=== PATIENT | female | born 1960 | race Caucasian/White ===

== ENCOUNTER → 2017-07-09 | Outpatient (REF) | payer OTHER | LOC: M SFHCLERA 19:23 | DX: J02.9 Acute pharyngitis, unspecified (principal) ==

== ENCOUNTER → 2017-10-20 | Outpatient (CLI) | payer OTHER | LOC: M ONCR 13:08 | DX: C32.9 Malignant neoplasm of larynx, unspecified (principal) | CPT/HCPCS: 99201 ==

== ENCOUNTER → 2017-10-26 | Outpatient (REF) | payer OTHER ==
[2017-10-26 13:35] LABS: INR 0.96; PROTHROMBIN TIME 12.9 SECONDS (12.4-14.5)
[2017-10-26 13:36] LABS: PARTIAL THROMBOPLASTIN TIME 33.7 SECONDS (26.8-37.9)
== END ==
LOC: M LAB REF 12:39
DX: Z01.818 Encounter for other preprocedural examination (principal); C32.9 Malignant neoplasm of larynx, unspecified

== ENCOUNTER → 2017-10-27 | Outpatient (CLI) | payer OTHER ==
[~2017-10-27] MED LIST: GASTROGRAFIN SOLUTION 30ML (Q9963) As Ordered; ISOVUE-370 76% 100ML VIAL (Q9967) As Ordered
== END ==
LOC: M RAD 10:35
DX: C76.0 Malignant neoplasm of head, face and neck (principal); M79.89 Other specified soft tissue disorders; R59.0 Localized enlarged lymph nodes; I87.1 Compression of vein
CPT/HCPCS: Q9963

== ENCOUNTER → 2017-11-08 | Outpatient (CLI) | payer OTHER ==
[~2017-11-08] MED LIST changes: -GASTROGRAFIN SOLUTION 30ML (Q9963) As Ordered
== END ==
LOC: M RAD 13:34
DX: D48.7 Neoplasm of uncertain behavior of other specified sites (principal)
CPT/HCPCS: Q9967

== ENCOUNTER → 2017-11-10 | Outpatient (CLI) | payer OTHER ==
[~2017-11-10] MED LIST changes: -ISOVUE-370 76% 100ML VIAL (Q9967) As Ordered; +LIDOCAINE 1% MDV 20ML VIAL As Ordered
== END ==
LOC: M RAD 14:33
DX: C79.2 Secondary malignant neoplasm of skin (principal); R22.31 Localized swelling, mass and lump, right upper limb; C32.1 Malignant neoplasm of supraglottis; Z90.5 Acquired absence of kidney; Z93.1 Gastrostomy status; Z95.828 Presence of other vascular implants and grafts; Z88.5 Allergy status to narcotic agent
CPT/HCPCS: 20206

== ENCOUNTER 2017-11-11 10:07 | Outpatient (RCR) | payer OTHER | END 2017-11-13 | LOC: M ONCR 10:07 | DX: C79.2 Secondary malignant neoplasm of skin (principal) | CPT/HCPCS: 77300 ==

== ENCOUNTER 2017-11-15 10:35 | Outpatient (RCR) | payer OTHER | END 2017-12-14 | LOC: M ONCR 10:35 | DX: C79.2 Secondary malignant neoplasm of skin (principal); C32.9 Malignant neoplasm of larynx, unspecified | CPT/HCPCS: 77336 ==

== ENCOUNTER 2017-11-21 21:00 | Emergency (ER) | payer OTHER ==
[2017-11-21 23:04] LABS: BASO % 0.3 % (0.0-1.0); EOS # 0.1 10^3/uL (0.0-0.50); EOS % 0.9 % (0.0-3.0); HEMOGLOBIN 12.1 g/dl (12.0-15.5); IMMATURE GRANULOCYTE % 0.4 % (0-3.0); LYMPH # 1.4 10^3/uL (1.5-4.5); LYMPH % 9.8 % (24.0-44.0); MEAN CORPUSCULAR HEMOGLOBIN 29.4 pg (27.0-33.0); MEAN CORPUSCULAR HGB CONC 32.7 g/dl (32.0-36.5); MEAN CORPUSCULAR VOLUME 89.8 fl (80.0-96.0); MONO # 1.6 10^3/uL (0.0-0.8); MONO % 11.8 % (0.0-5.0); NEUTROPHILS # 10.6 10^3/uL (1.8-7.7); NEUTROPHILS % 76.8 % (36.0-66.0); PLATELET COUNT, AUTOMATED 346 10^3/uL (150-450); RED BLOOD COUNT 4.12 10^6/uL (4.00-5.40); RED CELL DISTRIBUTION WIDTH 12.4 % (11.5-14.5); WHITE BLOOD COUNT 13.8 10^3/uL (4.0-10.0)
[2017-11-21 23:26] LABS: ALBUMIN 3.3 GM/DL (3.2-5.2); ALBUMIN/GLOBULIN RATIO 0.85 (1.00-1.93); ALKALINE PHOSPHATASE 111 U/L (45-117); ALT/SGPT 14 U/L (12-78); ANION GAP 6 MEQ/L (8-16); AST/SGOT 8 U/L (7-37); BILIRUBIN,DIRECT 0.1 MG/DL (0.0-0.2); BILIRUBIN,TOTAL 0.4 MG/DL (0.2-1.0); BLOOD UREA NITROGEN 17 MG/DL (7-18); CALCIUM LEVEL 8.8 MG/DL (8.5-10.1); CARBON DIOXIDE LEVEL 32 MEQ/L (21-32); CHLORIDE LEVEL 101 MEQ/L (98-107); CREATININE FOR GFR 0.62 MG/DL (0.55-1.30); GLOMERULAR FILTRATION RATE > 60.0 (>51); GLUCOSE, FASTING 100 MG/DL (70-100); LIPASE 147 U/L (73-393); POTASSIUM SERUM 4.1 MEQ/L (3.5-5.1); SODIUM LEVEL 139 MEQ/L (136-145); TOTAL PROTEIN 7.2 GM/DL (6.4-8.2)
[2017-11-21 23:29] LABS: INR 0.93; PARTIAL THROMBOPLASTIN TIME 25.6 SECONDS (25.4-37.6); PROTHROMBIN TIME 12.6 SECONDS (12.1-14.4)
[2017-11-22] MEDS ORDERED: ISOVUE-370 76% 100ML VIAL (Q9967) As Ordered (00:42)
== END 2017-11-22 02:40 | disposition home or self-care (01) ==
LOC: M ED 11-22 02:40
DX: R10.9 Unspecified abdominal pain (principal); C32.9 Malignant neoplasm of larynx, unspecified; R16.0 Hepatomegaly, not elsewhere classified; Z87.891 Personal history of nicotine dependence; Z93.1 Gastrostomy status; Z79.899 Other long term (current) drug therapy; Z88.5 Allergy status to narcotic agent
CPT/HCPCS: Q9967

== ENCOUNTER → 2017-11-25 | Outpatient (CLI) | payer OTHER | LOC: M ONCR 10:45 | DX: C32.1 Malignant neoplasm of supraglottis (principal) ==

== ENCOUNTER → 2017-12-14 | Outpatient (CLI) | payer OTHER ==
[~2017-12-14] MED LIST changes: -LIDOCAINE 1% MDV 20ML VIAL As Ordered; +PROHANCE 279.3MG/ML 5ML VIAL (A9576) As Ordered
== END ==
LOC: M RAD 11:02
DX: C32.1 Malignant neoplasm of supraglottis (principal)
CPT/HCPCS: A9576

== ENCOUNTER → 2017-12-15 | Outpatient (CLI) | payer OTHER | LOC: M ONCR 13:32 | DX: C32.9 Malignant neoplasm of larynx, unspecified (principal) | CPT/HCPCS: 99211 ==

== ENCOUNTER → 2018-01-03 | Outpatient (REF) | payer OTHER ==
[2018-01-03 13:42] LABS: MAGNESIUM LEVEL 1.3 MG/DL (1.8-2.4)
== END ==
LOC: M LAB REF 13:09
DX: C32.1 Malignant neoplasm of supraglottis (principal); C77.0 Secondary and unspecified malignant neoplasm of lymph nodes of head, face and neck; F17.210 Nicotine dependence, cigarettes, uncomplicated; R22.31 Localized swelling, mass and lump, right upper limb

== ENCOUNTER 2018-01-05 09:03 | Outpatient (RCR) | payer OTHER | END 2018-01-14 | LOC: M ST 09:03 | DX: C32.9 Malignant neoplasm of larynx, unspecified (principal); C79.9 Secondary malignant neoplasm of unspecified site | CPT/HCPCS: 92524 ==

== ENCOUNTER → 2018-01-10 | Outpatient (REF) | payer OTHER ==
[2018-01-10 14:07] LABS: MAGNESIUM LEVEL 1.5 MG/DL (1.8-2.4)
== END ==
LOC: M LAB REF 13:39
DX: C32.1 Malignant neoplasm of supraglottis (principal); C77.0 Secondary and unspecified malignant neoplasm of lymph nodes of head, face and neck; F17.210 Nicotine dependence, cigarettes, uncomplicated; R22.31 Localized swelling, mass and lump, right upper limb

== ENCOUNTER 2018-01-21 12:44 | Outpatient (RCR) | payer OTHER | END 2018-02-13 | LOC: M ST 12:44 | DX: C79.9 Secondary malignant neoplasm of unspecified site (principal); C32.9 Malignant neoplasm of larynx, unspecified | CPT/HCPCS: 92507 ==

== ENCOUNTER → 2018-01-24 | Outpatient (REF) | payer OTHER ==
[2018-01-24 23:31] LABS: MAGNESIUM LEVEL 1.3 MG/DL (1.8-2.4)
== END ==
LOC: M LAB REF 13:00
DX: C32.1 Malignant neoplasm of supraglottis (principal); C77.0 Secondary and unspecified malignant neoplasm of lymph nodes of head, face and neck; F17.210 Nicotine dependence, cigarettes, uncomplicated; R22.31 Localized swelling, mass and lump, right upper limb

== ENCOUNTER → 2018-01-31 | Outpatient (REF) | payer OTHER ==
[2018-01-31 14:40] LABS: MAGNESIUM LEVEL 1.5 MG/DL (1.8-2.4)
== END ==
LOC: M LAB REF 13:34
DX: C32.1 Malignant neoplasm of supraglottis (principal); C77.0 Secondary and unspecified malignant neoplasm of lymph nodes of head, face and neck; F17.210 Nicotine dependence, cigarettes, uncomplicated; R22.31 Localized swelling, mass and lump, right upper limb

== ENCOUNTER 2018-02-01 10:11 | Outpatient (CLI) | payer OTHER ==
[2018-02-01] MEDS: diphenhydrAMINE 50 MG CAP PO (11:43)
[2018-02-01 11:49] LABS: IMMEDIATE SPIN CROSSMATCH 1 2
[2018-02-01] MEDS: SODIUM CHLORIDE 0.9% INJ 10 ML SYR IV (15:47)
== END 2018-02-01 16:00 | disposition home or self-care (01) ==
LOC: M INFU 10:11
DX: D64.81 Anemia due to antineoplastic chemotherapy (principal); C32.9 Malignant neoplasm of larynx, unspecified; C79.9 Secondary malignant neoplasm of unspecified site; Z79.899 Other long term (current) drug therapy; Z88.5 Allergy status to narcotic agent; Z93.1 Gastrostomy status; Z90.5 Acquired absence of kidney; Z93.0 Tracheostomy status; Z90.02 Acquired absence of larynx
CPT/HCPCS: 36430

== ENCOUNTER → 2018-02-03 | Outpatient (CLI) | payer OTHER ==
[~2018-02-03] MED LIST changes: +GASTROGRAFIN SOLUTION 30ML (Q9963) As Ordered; +ISOVUE-370 76% 100ML VIAL (Q9967) As Ordered; -PROHANCE 279.3MG/ML 5ML VIAL (A9576) As Ordered
== END ==
LOC: M RAD 09:10
DX: C76.0 Malignant neoplasm of head, face and neck (principal); Z93.0 Tracheostomy status; R59.0 Localized enlarged lymph nodes
CPT/HCPCS: Q9963

== ENCOUNTER → 2018-02-03 | Outpatient (CLI) | payer OTHER | LOC: M ONCR 11:59 | DX: C32.9 Malignant neoplasm of larynx, unspecified (principal); C79.2 Secondary malignant neoplasm of skin ==

== ENCOUNTER → 2018-02-07 | Outpatient (REF) | payer OTHER ==
[2018-02-07 14:30] LABS: MAGNESIUM LEVEL 1.5 MG/DL (1.8-2.4)
== END ==
LOC: M LAB REF 13:46
DX: C32.1 Malignant neoplasm of supraglottis (principal); R22.31 Localized swelling, mass and lump, right upper limb; F17.210 Nicotine dependence, cigarettes, uncomplicated; C77.0 Secondary and unspecified malignant neoplasm of lymph nodes of head, face and neck

== ENCOUNTER 2018-03-07 11:08 | Outpatient (RCR) | payer OTHER | END 2018-03-16 | LOC: M ST 11:08 | DX: C32.9 Malignant neoplasm of larynx, unspecified (principal); C79.9 Secondary malignant neoplasm of unspecified site | CPT/HCPCS: 92507 ==

== ENCOUNTER 2018-03-16 11:48 | Emergency (ER) | payer OTHER ==
[2018-03-16] MEDS: NS 1,000 ML IV (14:04)
[2018-03-16] MEDS: ONDANSETRON 4MG/2ML VIAL (J2405) IV (14:04)
[2018-03-16] MEDS: MORPHINE 4 MG/ML 1ML VIAL/SYRINGE (J2270) IV (14:05)
[2018-03-16 14:09] LABS: BASO % 0.1 % (0.0-1.0); EOS % 0.1 % (0.0-3.0); HEMATOCRIT 35.6 % (36.0-47.0); HEMOGLOBIN 12.2 g/dl (12.0-15.5); IMMATURE GRANULOCYTE % 0.9 % (0-3.0); LYMPH # 2.3 10^3/uL (1.5-4.5); MEAN CORPUSCULAR HEMOGLOBIN 31.4 pg (27.0-33.0); MEAN CORPUSCULAR HGB CONC 34.3 g/dl (32.0-36.5); MEAN CORPUSCULAR VOLUME 91.8 fl (80.0-96.0); MONO # 1.3 10^3/uL (0.0-0.8); MONO % 9.2 % (0.0-5.0); NEUTROPHILS # 10.7 10^3/uL (1.8-7.7); NEUTROPHILS % 73.7 % (36.0-66.0); PLATELET COUNT, AUTOMATED 173 10^3/uL (150-450); RED BLOOD COUNT 3.88 10^6/uL (4.00-5.40); RED CELL DISTRIBUTION WIDTH 13.8 % (11.5-14.5); WHITE BLOOD COUNT 14.5 10^3/uL (4.0-10.0)
[2018-03-16 14:28] LABS: INR 0.99; PROTHROMBIN TIME 13.1 SECONDS (12.1-14.4)
[2018-03-16 14:29] LABS: PARTIAL THROMBOPLASTIN TIME 24.9 SECONDS (25.4-37.6)
[2018-03-16 14:33] LABS: ALBUMIN 3.7 GM/DL (3.2-5.2); ALBUMIN/GLOBULIN RATIO 0.95 (1.00-1.93); ALKALINE PHOSPHATASE 126 U/L (45-117); ALT/SGPT 35 U/L (12-78); AMYLASE 84 U/L (25-115); ANION GAP 12 MEQ/L (8-16); AST/SGOT 32 U/L (7-37); BILIRUBIN,DIRECT 0.1 MG/DL (0.0-0.2); BILIRUBIN,TOTAL 0.5 MG/DL (0.2-1.0); BLOOD UREA NITROGEN 49 MG/DL (7-18); CALCIUM LEVEL 8.4 MG/DL (8.5-10.1); CARBON DIOXIDE LEVEL 28 MEQ/L (21-32); CHLORIDE LEVEL 95 MEQ/L (98-107); CREATININE FOR GFR 1.34 MG/DL (0.55-1.30); GLOMERULAR FILTRATION RATE 43.4 (>51); GLUCOSE, FASTING 86 MG/DL (70-100); LIPASE 400 U/L (73-393); POTASSIUM SERUM 3.3 MEQ/L (3.5-5.1); SODIUM LEVEL 135 MEQ/L (136-145); TOTAL PROTEIN 7.6 GM/DL (6.4-8.2)
[2018-03-16] MEDS ORDERED: ISOVUE-370 76% 100ML VIAL (Q9967) As Ordered (14:36)
== END 2018-03-16 16:38 | disposition home or self-care (01) ==
LOC: M ED 11:48
DX: K29.70 Gastritis, unspecified, without bleeding (principal); K85.90 Acute pancreatitis without necrosis or infection, unspecified; Z87.891 Personal history of nicotine dependence; Z88.5 Allergy status to narcotic agent; Z85.21 Personal history of malignant neoplasm of larynx
CPT/HCPCS: J2270

== ENCOUNTER 2018-03-28 10:42 | Outpatient (CLI) | payer OTHER ==
[~2018-03-28 10:42] MED LIST changes: -GASTROGRAFIN SOLUTION 30ML (Q9963) As Ordered; -ISOVUE-370 76% 100ML VIAL (Q9967) As Ordered; +SODIUM CHLORIDE 0.9% INJ 10 ML SYR IV
[2018-03-28] MEDS: diphenhydrAMINE 25 MG CAP PO (11:30)
[2018-03-28] MEDS: ACETAMINOPHEN TAB 650MG DOSE (2X325MG) PO (11:30)
[2018-03-28 12:16] LABS: IMMEDIATE SPIN CROSSMATCH 1 2
== END 2018-03-28 16:45 | disposition home or self-care (01) ==
LOC: M INFU 10:42
DX: D64.9 Anemia, unspecified (principal)
CPT/HCPCS: 36430

== ENCOUNTER 2018-05-04 10:37 | Outpatient (RCR) | payer OTHER ==
[~2018-05-04 10:37] MED LIST changes: +ACIDCAP15 PO; +ADV250INH INH; +AMIL25TA PO; +AMOX500C PO; +ARTI99.0 OP; +ASPI81CH32 PO; +AZIL1TAB PO; +CLIN1GEL22 TD; +COMBAER6 INH; +DEXA4TA PO; +DOXY1CAP60 PO; +FLON1SPR NARES; +KEFL500C17 PO; +MAGICMW MT; +METF500T13 PO; +MIRA0.5T PO; +MULTTAB23 PO; +MUPI2OI TD; +OMEP40CA2 PO; +ONDA8TAB7 PO; +POTA20EL PO; +PROC10TA4 PO; +SILV40CR EXT; +SINE25TA5 PO; +SLOWTAB2 PO; -SODIUM CHLORIDE 0.9% INJ 10 ML SYR IV; +TORS20TA2 PO; +TRAM50TA2 PO; +ZOFR4TAB14 PO
[2018-05-09] MEDS ORDERED: NEUR100C PO (10:15)
== END 2018-05-16 ==
LOC: M ST 10:37
PROVIDERS: ATTEND Otolaryngology
DX: C32.1 Malignant neoplasm of supraglottis (principal); Z98.890 Other specified postprocedural states
CPT/HCPCS: 92507; G9171; G9172

== ENCOUNTER 2018-05-04 14:19 | Outpatient (CLI) | payer OTHER ==
[~2018-05-04] VITALS: Ht 162.6 cm; Wt 63.0 kg
[~2018-05-04 14:19] MED LIST changes: +ACETAMINOPHEN TAB 650MG DOSE (2X325MG) PO SCH; +diphenhydrAMINE 25 MG CAP PO SCH
[2018-05-04 14:33] VITALS: BP 154/67
[2018-05-04] MEDS ORDERED: SODIUM CHLORIDE 0.9% INJ 10 ML SYR IV ONE (21:00)
== END 2018-05-04 22:25 | disposition home or self-care (01) ==
LOC: M OPCLI4PV 14:19 → M MSPAV 14:22 → M OPCLI4PV 22:25
PROVIDERS: ATTEND Nurse Practitioner Family
DX: D64.9 Anemia, unspecified (principal); Z88.5 Allergy status to narcotic agent
CPT/HCPCS: 36430; 86920; P9016

== ENCOUNTER → 2018-05-31 | Outpatient (CLI) | payer OTHER ==
[~2018-05-31] MED LIST changes: -ACETAMINOPHEN TAB 650MG DOSE (2X325MG) PO SCH; +NEUR100C PO; -diphenhydrAMINE 25 MG CAP PO SCH
--- NOTE | 2018-06-01 08:12 | REP ---
PET/CT: HISTORY: Metastatic head and neck cancer. Check response to treatment. No supraglottic squamous cell carcinoma status post laryngectomy, palliative radiation to bulky cervical lymph nodes and right arm mass. Patient being treated with chemotherapy. COMPARISONS: No comparison PET/CT. Comparison CT study of the neck is from February 03, 2018. TECHNIQUE: 58 minutes following the intravenous injection of a 8.3 mCi dose of F-18 FDG, three-dimensional PET scintigraphy is acquired from the skull base to the proximal thighs. Triplanar noncontrast CT scanning is acquired through the same anatomic range for attenuation correction, and image registration with scan parameters optimized to minimize radiation exposure to the patient. PET scintigraphy and CT datasets were fused and displayed on a workstation with multiplanar and projection display capability. PET/CT FINDINGS: There is skeletal muscle and normal variant brown fat uptake in the posterior neck superiorly. No suspicious hypermetabolic loida uptake is seen in the neck soft tissues. No suspicious hypermetabolic uptake is seen in the thorax. In the abdomen and pelvis, there is no abnormal hypermetabolic uptake seen. There is a subdural cyst in the left inferior gluteal region showing no FDG abnormal accumulation. This is consistent with a sebaceous cyst. No abnormal axillary or upper extremity hypermetabolic uptake is seen. The left kidney is surgically absent. IMPRESSION: No suspicious hypermetabolic uptake is seen. Electronically Signed by Josh Francisco MD 06/01/2018 11:44 A
== END ==
LOC: M PLARAD 10:55
PROVIDERS: ATTEND Internal Medicine Medical Oncology
DX: C76.0 Malignant neoplasm of head, face and neck (principal); N28.9 Disorder of kidney and ureter, unspecified; Z90.5 Acquired absence of kidney
CPT/HCPCS: 78815; A9552

== ENCOUNTER → 2018-06-14 | Outpatient (CLI) | payer OTHER ==
[~2018-06-14] VITALS: Ht 162.6 cm; Wt 60.7 kg
[2018-06-14] VITALS (8 sets, daily range): BP systolic 102–140; BP diastolic 53–70
[~2018-06-14] MED LIST changes: +ACETAMINOPHEN TAB 650MG DOSE (2X325MG) PO SCH; +SODIUM CHLORIDE 0.9% INJ 10 ML SYR IV SCH; +diphenhydrAMINE 25 MG CAP PO SCH
== END ==
LOC: M INFU 09:41
PROVIDERS: ATTEND Internal Medicine Medical Oncology
DX: D64.9 Anemia, unspecified (principal); C32.1 Malignant neoplasm of supraglottis; C76.0 Malignant neoplasm of head, face and neck; Z88.5 Allergy status to narcotic agent
CPT/HCPCS: 36430; P9016

== ENCOUNTER → 2018-07-14 | Outpatient (RCR) | payer OTHER ==
[~2018-07-14] MED LIST changes: -ACETAMINOPHEN TAB 650MG DOSE (2X325MG) PO SCH; -SODIUM CHLORIDE 0.9% INJ 10 ML SYR IV SCH; -diphenhydrAMINE 25 MG CAP PO SCH
== END ==
LOC: M OT 07-12 12:24
PROVIDERS: ATTEND Internal Medicine Medical Oncology
DX: Z51.89 Encounter for other specified aftercare (principal); G62.9 Polyneuropathy, unspecified

== ENCOUNTER 2018-08-11 09:00 | Outpatient (RCR) | payer OTHER | END 2018-08-14 | LOC: M PT 09:00 | PROVIDERS: ATTEND Internal Medicine Medical Oncology | DX: Z51.89 Encounter for other specified aftercare (principal); G62.0 Drug-induced polyneuropathy ==

== ENCOUNTER 2018-08-18 09:45 | Outpatient (RCR) | payer OTHER ==
[~2018-08-18 09:45] MED LIST changes: -ASPI81CH32 PO; +ASPI81CH33 PO
[2018-08-22] MEDS ORDERED: DECA4TAB PO (10:13)
== END 2018-09-13 ==
LOC: M OT 09:45
PROVIDERS: ATTEND Internal Medicine Medical Oncology
DX: G62.9 Polyneuropathy, unspecified (principal); R53.83 Other fatigue

== ENCOUNTER 2018-09-16 12:03 | Inpatient (IN) | payer OTHER ==
[~2018-09-16] VITALS: Ht 162.6 cm; Wt 71.2 kg
[~2018-09-16 12:03] MED LIST changes: +DECA4TAB PO
[2018-09-16] MEDS ORDERED: NS 1,000 ML IV SCH (12:06)
[2018-09-16] MEDS ORDERED: LIDOCAINE 2% 5ML JELLY UROJET TOP ONE (12:15)
[2018-09-16 12:39] LABS: BASO # 0.1 10^3/uL (0.0-0.2); EOS # 0.3 10^3/uL (0.0-0.50); EOS % 4.4 % (0.0-3.0); HEMATOCRIT 27.4 % (36.0-47.0); HEMOGLOBIN 8.7 g/dl (12.0-15.5); LYMPH % 16.5 % (24.0-44.0); MEAN CORPUSCULAR HEMOGLOBIN 31.3 pg (27.0-33.0); MEAN CORPUSCULAR HGB CONC 31.8 g/dl (32.0-36.5); MEAN CORPUSCULAR VOLUME 98.6 fl (80.0-96.0); MONO # 0.5 10^3/uL (0.0-0.8); MONO % 8.3 % (0.0-5.0); NEUTROPHILS # 4.3 10^3/uL (1.8-7.7); NEUTROPHILS % 69.3 % (36.0-66.0); PLATELET COUNT, AUTOMATED 194 10^3/uL (150-450); RED BLOOD COUNT 2.78 10^6/uL (4.00-5.40); WHITE BLOOD COUNT 6.2 10^3/uL (4.0-10.0)
--- NOTE | 2018-09-16 12:46 | REP ---
CT Head without contrast HISTORY: Altered mental status COMPARISON: MR 12/14/2017 Confluent areas of decreased attenuation are present in the periventricular and subcortical white matter. This represents small-vessel ischemic disease. There is no intraparenchymal hemorrhage, acute infarct, mass or midline shift. The ventricular system and cortical sulci are dilated consistent with moderate volume loss. There is no extra cerebral collection. There is no fracture. Mucosal thickening is present in the left sphenoid sinus. IMPRESSION: 1. Small vessel ischemic disease. 2. Moderate volume loss. Electronically Signed by Scar Sin MD 09/16/2018 12:38 P
[2018-09-16 12:54] LABS: ABG BASE EXCESS -5.2 (-2.0-2.0); ABG O2 SATURATION 92.1 % (95.0-99.0); ABG PARTIAL PRESSURE CO2 31.9 mmHg (35.0-45.0); ABG PARTIAL PRESSURE O2 65.7 mmHg (75.0-100.0); ABG TOTAL CO2 19.9 MEQ/L (22.0-29.0); ABG pH (ARTERIAL) 7.392 UNITS (7.350-7.450)
--- NOTE | 2018-09-16 12:56 | REP ---
Chest one-view HISTORY: Altered mental status Comparison: 11/05/2017 The lungs are clear. The heart is normal in size. The pulmonary vasculature is normal in appearance. An Psaemw-P-Tfci catheter is present. Impression: No acute disease. Electronically Signed by Scar Sin MD 09/16/2018 12:48 P
[2018-09-16 13:18] LABS: ALBUMIN 3.7 GM/DL (3.2-5.2); ALT/SGPT 145 U/L (12-78); BILIRUBIN,DIRECT 0.2 MG/DL (0.0-0.2); BILIRUBIN,TOTAL 0.6 MG/DL (0.2-1.0); BLOOD UREA NITROGEN 17 MG/DL (7-18); CALCIUM LEVEL 8.4 MG/DL (8.5-10.1); CARBON DIOXIDE LEVEL 16 MEQ/L (21-32); CHLORIDE LEVEL 105 MEQ/L (98-107); CPK CREATINE PHOSPHOKINASE 128 U/L (26-192); ETHYL ALCOHOL (ETHANOL) < 0.003 % (0.000-0.010); GLUCOSE, FASTING 113 MG/DL (70-100); MB/CK RELATIVE INDEX 1.41 (< OR =4); POTASSIUM SERUM 3.8 MEQ/L (3.5-5.1); SODIUM LEVEL 137 MEQ/L (136-145); TOTAL PROTEIN 7.2 GM/DL (6.4-8.2); TROPONIN I < 0.02 NG/ML (< 0.10)
[2018-09-16 13:19] LABS: OSMOLALITY SERUM 285 MOSM/KG (275-295)
[2018-09-16] MEDS ORDERED: levETIRAcetam INJection 1,000 MG in D5W 100 ML IV ONE (15:30)
[2018-09-16 15:32] LABS: AMPHETAMINES LEVEL URINE NEGATIVE (NEGATIVE); BARBITURATES URINE NEGATIVE (NEGATIVE); BENZODIAZEPINES URINE POSITIVE (NEGATIVE); CANNABINOIDS URINE NEGATIVE (NEGATIVE); COCAINE METABOLITE URINE NEGATIVE (NEGATIVE); METHADONE URINE NEGATIVE (NEGATIVE); OPIATES URINE NEGATIVE (NEGATIVE); PHENCYCLIDINE URINE NEGATIVE (NEGATIVE)
[2018-09-16] MEDS ORDERED: SLOWTAB2 PO (16:04)
[2018-09-16] MEDS ORDERED: GABA-1171 PO (16:04)
--- NOTE | 2018-09-16 18:04 | HPEPDOC ---
General Date of Admission 09/16/18 Chief Complaint The patient is a 58-year-old female admitted with a reason for visit of Seizure. 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 the patient does not remember it. last thing she remembers is trying to gt into the cab and the next thing she remembers is the EMS are around her getting her into the ambulance. As per EMS she had another episode of generalized tonic clonic seizure in front of them and they gave her 5 mg of versed. After reaching the ED initially she was confused with right upper extremity weakness as per the ED physician. CT head was done which was negative for any acute events. After about half hour after arrival to the ED her confusion resolved and slowly her weakness of the right arm also resolved. By the time i saw her she was back to her baseline with no weakness. She was admitted to the hospitalist service for new onset seizure with Todds palsy which had resolved. Home Medications Scheduled Gabapentin (Gabapentin) 100 Mg Capsule, 300 MG PO TID, (Reported) Magnesium Chloride (Slow-Mag) 71.5 Mg Tablet.dr, 71.5 MG PO BID, (Reported) Allergies Coded Allergies: codeine (Verified Adverse Reaction, Intermediate, KIDNEY DYSFUNCTION, 08/10/18) Past Medical History Medical History Metastatic squamous cell cancer of the head and neck specifically of the supraglottic larynx. Surgical History KIDNEY REMOVAL ON LEFT SIDE 1994 RIGHT WRIST SURGERY 2003 RIGHT CATARACT 1999 TOTAL LARYGECTOMY AND PHARYNGECTOMY 09/2017 POWER PORT AND PEG TUBE PLACEMENT 10/2017 Social History * Smoker: former Smoker, quit less than 1 year, greater than 1 pack/day Alcohol: Denies Drugs: denies A-FIB/CHADSVASC A-FIB History Current/History of A-Fib/PAF?: No Review of Systems Constitutional: Denies: Chills, Fever, Night Sweats Eyes: Denies: Pain, Vision change ENT: Denies: Head Aches, Ear Pain, Dysphagia Skin: Denies: Rash, Lesions, Breakdown Pulmonary: Denies: Dyspnea, Cough Cardiovascular: Denies: Chest Pain, Palpitations, Orthopnea, Lt Headedness Gastrointestinal: Denies: Nausea, Vomiting, Abdominal Pain, Diarrhea Genitourinary: Denies: Dysuria, Frequency, Incontinence, Retention Musculoskeletal: Reports: Back Pain Neurological: Reports: Weakness, Confusion, Seizures Physical Examination General Exam: Positive: Alert, Cooperative, No Acute Distress Eye Exam: Positive: PERRLA, Conjunctiva & lids normal, EOMI; Negative: Sclera icteric ENT Exam: Positive: Tongue Midline, Nares Patent, Other ENT (has a tracheostomy stoma present) Neck Exam: Positive: Supple Chest Exam: Positive: Clear to auscultation, Normal air movement Heart Exam: Positive: Rate Normal, Regular Rhythm, Normal S1, Normal S2; Negative: Murmurs, Rubs Telemetry: Positive: No significant arrhythmia Abdomen Exam: Positive: Normal bowel sounds, Soft; Negative: Tenderness, Hepatospenomegaly Extremity Exam: Positive: Edema, Tenderness Skin Exam: Positive: Nl turgor and temperature; Negative: Breakdown, Lesion Neuro Exam: Positive: Strength at 5/5 X4 ext, Normal Tone Psych Exam: Positive: Memory Intact, Oriented x 3 Vital Signs Vital Signs Date Time Temp Pulse Resp B/P (MAP) Pulse Ox O2 Delivery O2 Flow Rate FiO2 09/16/18 13:48 96 98 09/16/18 12:17 98.2 17 124/59 (80) Room Air Laboratory Data Labs 24H Laboratory Tests 2 09/16/18 12:21: Immature Granulocyte % (Auto) 0.5, White Blood Count 6.2, Red Blood Count 2.78L, Hemoglobin 8.7L, Hematocrit 27.4L, Mean Corpuscular Volume 98.6H, Mean Corpuscular Hemoglobin 31.3, Mean Corpuscular Hemoglobin Concent 31.8L, Red Cell Distribution Width 14.6H, Platelet Count 194, Neutrophils (%) (Auto) 69.3H, Lymphocytes (%) (Auto) 16.5L, Monocytes (%) (Auto) 8.3H, Eosinophils (%) (Auto) 4.4H, Basophils (%) (Auto) 1.0, Neutrophils # (Auto) 4.3, Lymphocytes # (Auto) 1.0L, Monocytes # (Auto) 0.5, Eosinophils # (Auto) 0.3, Basophils # (Auto) 0.1, Nucleated Red Blood Cells % (auto) 0.0, Anion Gap 16, Glomerular Filtration Rate 38.0L, Osmolality 285, Lactic Acid Level 9.5*H, Calcium Level 8.4L, Aspartate Amino Transf (AST/SGOT) 105H, Alanine Aminotransferase (ALT/SGPT) 145H, Alkaline Phosphatase 107, Total Bilirubin 0.6, Direct Bilirubin 0.2, Ammonia 38H, Total Creatine Kinase 128, Creatine Kinase MB 2.0, Creatine Kinase MB Relative Index 1.41, Troponin I < 0.02, Total Protein 7.2, Albumin 3.7, Albumin/Globulin Ratio 1.06, Thyroid Stimulating Hormone (TSH) 1.370, Ethyl Alcohol Level < 0.003 09/16/18 12:33: Blood Gas Bicarbonate Standard 20.0L, Arterial Blood pH 7.392, Arterial Blood Partial Pressure CO2 31.9L, Arterial Blood Partial Pressure O2 65.7L, Arterial Blood Total CO2 19.9L, Arterial Blood HCO3 19.0L, Arterial Blood Base Excess - 5.2L, Arterial Blood Oxygen Saturation 92.1L 09/16/18 14:33: Urine Color STRAW, Urine Appearance CLEAR, Urine pH 6.0, Urine Specific [place] 1.004, Urine Protein NEGATIVE, Urine Glucose (UA) NEGATIVE, Urine Ketones NEGATIVE, Urine Blood NEGATIVE, Urine Nitrite NEGATIVE, Urine Bilirubin NEGATIVE , Urine Urobilinogen 0.2, Urine Leukocyte Esterase NEGATIVE, Urine WBC (Auto) 0, Urine RBC (Auto) 3, Urine Hyaline Casts (Auto) 0, Urine Bacteria (Auto) NEGATIVE, Urine Squamous Epithelial Cells 0, Urine Mucus (Auto) SMALL, Urine Sperm (Auto) , Urine Amphetamines Screen NEGATIVE, Urine Benzodiazepines Screen POSITIVEH, Urine Opiates Screen NEGATIVE, Urine Methadone Screen NEGATIVE, Urine Barbiturates Screen NEGATIVE, Urine Phencyclidine Screen NEGATIVE, Urine Cocaine Metabolite Screen NEGATIVE, Urine Cannabinoids Screen NEGATIVE CBC/BMP Laboratory Tests 09/16/18 12:21 Red Blood Count 2.78 L, Mean Corpuscular Volume 98.6 H, Mean Corpuscular Hemoglobin 31.3, Mean Corpuscular Hemoglobin Concent 31.8 L, Red Cell Distribution Width 14.6 H, Neutrophils (%) (Auto) 69.3 H, Lymphocytes (%) (Auto) 16.5 L, Monocytes (%) (Auto) 8.3 H, Eosinophils (%) (Auto) 4.4 H, Basophils (%) (Auto) 1.0, Neutrophils # (Auto) 4.3, Lymphocytes # (Auto) 1.0 L, Monocytes # (Auto) 0.5, Eosinophils # (Auto) 0.3, Basophils # (Auto) 0.1 Microbiology Microbiology 09/16/18 Blood Culture, Received Pending 09/16/18 Blood Culture, Received Pending Assessment/Plan 58 year old female with PMH of 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 the patient does not remember it. last thing she remembers is trying to gt into the cab and the next thing she remembers is the EMS are around her getting her into the ambulance. As per EMS she had another episode of generalized tonic clonic seizure in front of them and they gave her 5 mg of versed. After reaching the ED initially she was confused with right upper extremity weakness as per the ED physician. CT head was done which was negative for any acute events. After about half hour after arrival to the ED her confusion resolved and slowly her weakness of the right arm also resolved. By the time i saw her she was back to her baseline with no weakness. She was admitted to the hospitalist service for new onset seizure with Todds palsy which had resolved. Seizurex2 with possibly Todds paresis of the right upper extremity first episode CT head negative will need MRI with and without contrast to rule out mets to brain keppra Neurology consult Lactacidosis due to seizure will give ivf Transaminitis will need to rule out liver mets Metastatic squamous cell carcinoma of supraglottic larynx, status post laryngectomy, palliative radiation/cisplatin for palliation of bulky cervical and right arm metastases. This followed by chemotherapy chemo now on hold due to angioedema like complications. 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 continue gabapentin. Renal insufficiency --CKD 3 thought to be from complicating combination 5-FU/cisplatin/cetuximab. DVT prophylaxis ordered. Plan / VTE VTE Prophylaxis Ordered?: Yes LOGAN WAGNER MD September 16, 2018 16:40
[2018-09-16] MEDS: NS 1,000 ML IV SCH ×2 (19:00→22:16)
[2018-09-16 20:18] VITALS: BP 124/60
--- NOTE | 2018-09-16 20:24 | REP ---
MRI BRAIN WITH AND WITHOUT CONTRAST: TECHNIQUE: Multiple sequences obtained in the axial, coronal and sagittal planes prior to and following the intravenous administration of 7 mL ProHance. Comparison made with prior MRI 12/14/2017. There is moderate atrophy again seen. There is no midline shift. Extensive periventricular small vessel ischemic changes and gliosis are again noted similar to the prior study. However, there is a new round area of abnormal signal, low on T1 and high on T2, with rim enhancement consistent with a new metastatic lesion on the left posterior parietal region. This measures approximately 2.6 x 2.3 x 2.4 cm. There is mild surrounding edema in the white matter. No other brain lesion or mass is seen. Brainstem and cerebellum are unremarkable as are the 7th and 8th cranial nerve complexes. IMPRESSION: New metastatic lesion left posterior parietal region demonstrating peripheral enhancement and mild surrounding white matter edema. It measures 2.6 x 2.3 x 2.4 cm. Electronically Signed by Asher Gates MD 09/17/2018 03:08 P
[2018-09-16] MEDS: GABAPENTIN 300 MG CAP PO SCH (22:12)
[2018-09-16] MEDS: MAGNESIUM CHLORIDE 64 MG TABCR (SLO MAG) PO SCH (22:12)
[2018-09-17 06:00] VITALS: BP 94/50
[2018-09-17 06:27] LABS: BASO # 0.1 10^3/uL (0.0-0.2); EOS # 0.3 10^3/uL (0.0-0.50); HEMATOCRIT 23.9 % (36.0-47.0); HEMOGLOBIN 7.7 g/dl (12.0-15.5); LYMPH # 1.5 10^3/uL (1.5-4.5); LYMPH % 25.5 % (24.0-44.0); MEAN CORPUSCULAR HEMOGLOBIN 31.3 pg (27.0-33.0); MEAN CORPUSCULAR HGB CONC 32.2 g/dl (32.0-36.5); MEAN CORPUSCULAR VOLUME 97.2 fl (80.0-96.0); MONO # 0.7 10^3/uL (0.0-0.8); MONO % 11.4 % (0.0-5.0); NEUTROPHILS # 3.3 10^3/uL (1.8-7.7); NEUTROPHILS % 56.9 % (36.0-66.0); PLATELET COUNT, AUTOMATED 197 10^3/uL (150-450); RED BLOOD COUNT 2.46 10^6/uL (4.00-5.40); WHITE BLOOD COUNT 5.8 10^3/uL (4.0-10.0)
[2018-09-17 06:50] LABS: CALCIUM LEVEL 8.2 MG/DL (8.5-10.1); CREATININE FOR GFR 1.32 MG/DL (0.55-1.30)
[2018-09-17 09:00] VITALS: BP 94/50
[2018-09-17] MEDS ORDERED: levETIRAcetam 250MG TABLET (KEPPRA) PO SCH (09:00)
[2018-09-17] MEDS: HEPARIN SOD (PORCINE) 5000 UNITS/ML VIAL SC SCH ×2 (09:00→20:13)
[2018-09-17] MEDS: GABAPENTIN 300 MG CAP PO SCH ×3 (10:42→20:12)
[2018-09-17] MEDS: MAGNESIUM CHLORIDE 64 MG TABCR (SLO MAG) PO SCH (10:43)
[2018-09-17 11:01] LABS: ALBUMIN 3.1 GM/DL (3.2-5.2); BILIRUBIN,DIRECT 0.2 MG/DL (0.0-0.2); BILIRUBIN,TOTAL 0.7 MG/DL (0.2-1.0); TOTAL PROTEIN 6.2 GM/DL (6.4-8.2)
[2018-09-17] MEDS: dexameTHASONE 4 MG/ML 1ML VIAL (J1100) IV SCH (12:47)
[2018-09-17] MEDS: FAMOTIDINE 20 MG TAB PO SCH ×2 (12:47→20:12)
--- NOTE | 2018-09-17 12:47 | IPNPDOC ---
Subjective Date Seen The patient was seen on 09/17/18. Subjective Chief Complaint/HPI Seizures Events since last encounter Feeling good this morning. Having increased trouble in walking and coordination. She does have neuropathy from chemotherapy so was already needing some assistance at home however over the past few weeks it has worsened a lot and daughter is concerned about her able to manage at their apartment which is not handicapped equipped. Will ask PT to evaluate. HH has been dropping over the p ast month will give 1 unit of PRBC. LFTs remain abnormal will get CT abdomen and pelvis with contrast. Objective Physical Examination General Exam: Positive: Alert, Cooperative, No Acute Distress Eye Exam: Positive: PERRLA, Conjunctiva & lids normal, EOMI; Negative: Sclera icteric ENT Exam: Positive: Tongue Midline, Nares Patent, Other ENT (has a tracheostomy stoma present) Neck Exam: Positive: Supple Chest Exam: Positive: Clear to auscultation, Normal air movement Heart Exam: Positive: Rate Normal, Regular Rhythm, Normal S1, Normal S2; Negative: Murmurs, Rubs Telemetry: Positive: No significant arrhythmia Abdomen Exam: Positive: Normal bowel sounds, Soft; Negative: Tenderness, Hepatospenomegaly Extremity Exam: Positive: Edema, Tenderness Skin Exam: Positive: Nl turgor and temperature; Negative: Breakdown, Lesion Neuro Exam: Positive: Strength at 5/5 X4 ext, Normal Tone Psych Exam: Positive: Memory Intact, Oriented x 3 Assessment /Plan Assessment 58 year old female with PMH of 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 the patient does not remember it. last thing she remembers is trying to gt into the cab and the next thing she remembers is the EMS are around her getting her into the ambulance. As per EMS she had another episode of generalized tonic clonic seizure in front of them and they gave her 5 mg of versed. After reaching the ED initially she was confused with right upper extremity weakness as per the ED physician. CT head was done which was negative for any acute events. After about half hour after arrival to the ED her confusion resolved and slowly her weakness of the right arm also resolved. By the time i saw her she was back to her baseline with no weakness. She was admitted to the hospitalist service for new onset seizure with Todds palsy which has resolved. Seizurex2 with possibly Todds paresis of the right upper extremity first episode MRI with and without contrast shows solitary metastatic lesion on the left occipito parietal cortex superficial in position keppra and dexamethasone. Neurology consult appreciated. Spoke with Dr Bunch will see in the office next week and coordinate referral to [facility] for gamma knife resection or surgical resection. Anemia from chronic disease, chemotherapy will get iron profile, b12, folate levels PRBC transfusion. Lactacidosis due to seizure resolved. Transaminitis will need to rule out liver mets CT with contrast Metastatic squamous cell carcinoma of supraglottic larynx, status post laryngectomy, palliative radiation/cisplatin for palliation of bulky cervical and right arm metastases. This followed by chemotherapy chemo now on hold due to angioedema like complications. 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 continue gabapentin. PT evaluation Renal insufficiency --CKD 3 thought to be from complicating combination 5-FU/cisplatin/cetuximab. DVT prophylaxis ordered. Plan/VTE VTE Prophylaxis Ordered?: Yes VS, I&O, 24H, Fishbone Vital Signs/I&O Vital Signs Date Time Temp Pulse Resp B/P (MAP) Pulse Ox O2 Delivery O2 Flow Rate FiO2 09/17/18 09:00 98.1 95 18 94/50 (65) 94 09/16/18 20:11 Room Air I&O- Last 24 Hours up to 6 AM 09/17/18 06:00 Intake Total 0 ml Output Total 0 ml Balance 0 ml Laboratory Data 24H LABS Laboratory Tests 2 09/16/18 14:33: Urine Color STRAW, Urine Appearance CLEAR, Urine pH 6.0, Urine Specific [place] 1.004, Urine Protein NEGATIVE, Urine Glucose (UA) NEGATIVE, Urine Ketones NEGATI VE, Urine Blood NEGATIVE, Urine Nitrite NEGATIVE, Urine Bilirubin NEGATIVE, Urine Urobilinogen 0.2, Urine Leukocyte Esterase NEGATIVE, Urine WBC (Auto) 0, Urine RBC (Auto) 3, Urine Hyaline Casts (Auto) 0, Urine Bacteria (Auto) NEGATIVE, Urine Squamous Epithelial Cells 0, Urine Mucus (Auto) SMALL, Urine Sperm (Auto) , Urine Amphetamines Screen NEGATIVE, Urine Benzodiazepines Screen POSITIVEH, Urine Opiates Screen NEGATIVE, Urine Methadone Screen NEGATIVE, Urine Barbiturates Screen NEGATIVE, Urine Phencyclidine Screen NEGATIVE, Urine Cocaine Metabolite Screen NEGATIVE, Urine Cannabinoids Screen NEGATIVE 09/16/18 19:49: Lactic Acid Followup at 4 Hours 0.7 09/17/18 06:01: Immature Granulocyte % (Auto) 0.2, White Blood Count 5.8, Red Blood Count 2.46L, Hemoglobin 7.7L, Hematocrit 23.9L, Mean Corpuscular Volume 97.2H, Mean Corpuscular Hemoglobin 31.3, Mean Corpuscular Hemoglobin Concent 32.2, Red Cell Distribution Width 14.8H, Platelet Count 197, Neutrophils (%) (Auto) 56.9, Lymphocytes (%) (Auto) 25.5, Monocytes (%) (Auto) 11.4H, Eosinophils (%) (Auto) 5.0H, Basophils (%) (Auto) 1.0, Neutrophils # (Auto) 3.3, Lymphocytes # (Auto) 1.5, Monocytes # (Auto) 0.7, Eosinophils # (Auto) 0.3, Basophils # (Auto) 0.1, Nucleated Red Blood Cells % (auto) 0.0, Anion Gap 4L, Glomerular Filtration Rate 44.0L, Calcium Level 8.2L, Aspartate Amino Transf (AST/SGOT) 92H, Alanine Aminotransferase (ALT/SGPT) 116H, Alkaline Phosphatase 76, Total Bilirubin 0.7, Direct Bilirubin 0.2, Total Protein 6.2L, Albumin 3.1L, Albumin/Globulin Ratio 1.00 CBC/BMP Laboratory Tests 09/17/18 06:01 Red Blood Count 2.46 L, Mean Corpuscular Volume 97.2 H, Mean Corpuscular Hemoglobin 31.3, Mean Corpuscular Hemoglobin Concent 32.2, Red Cell Distribution Width 14.8 H, Neutrophils (%) (Auto) 56.9, Lymphocytes (%) (Auto) 25.5, Monocytes (%) (Auto) 11.4 H, Eosinophils (%) (Auto) 5.0 H, Basophils (%) (Auto) 1.0, Neutrophils # (Auto) 3.3, Lymphocytes # (Auto) 1.5, Monocytes # (Auto) 0.7, Eosinophils # (Auto) 0.3, Basophils # (Auto) 0.1 Microbiology Microbiology 09/16/18 Blood Culture - Preliminary, Resulted No growth after 24 hours . All specim... 09/16/18 Blood Culture - Preliminary, Resulted No growth after 24 hours . All specim... LOGAN WAGNER MD September 17, 2018 12:47
[2018-09-17] MEDS: GASTROGRAFIN SOLUTION 30ML PO SCH ×2 (13:16→13:30)
[2018-09-17 13:44] LABS: PERCENT SATURATION 34.3 % (13.2-45.0)
[2018-09-17 14:00] VITALS: BP 126/61
--- NOTE | 2018-09-17 14:35 | CR ---
DATE OF CONSULTATION: 09/17/2018 REFERRING PHYSICIAN: Pinky Hoover MD REASON FOR CONSULTATION: Grand mal seizure, right-sided weakness. HISTORY OF PRESENT ILLNESS: Ms. Louis is a 58-year-old woman with metastatic squamous cell carcinoma of larynx, status post surgical resection in [place], [place] in 2017 and palliative radiation therapy, which she finished in December 2017 with chemotherapy, which is still continuing. The patient had headache for the last couple of days and off-and-on felt confusion. Yesterday, she was going to an appointment with her doctor when she was trying to get into the cab and had a generalized tonic clonic seizure. Emergency medical services (EMS) was called, and the patient had a second grand mal seizure in the ambulance and was given Versed. In the emergency department, she was noted to be postictal, confused and had right arm and leg weakness. She complains of a mild frontal headache. She still feels decreased coordination on the right side of her body. Her weakness is better today. She denies dysphagia, dysarthria, diplopia, falls or loss of consciousness. Her tumor has metastasized to her lymph nodes and right arm. Her PET scan in May 2018 looked good. She was being scheduled for CT scan of her chest, abdomen and pelvis in the near future. She has tingling and numbness in her feet due to chemotherapy induced peripheral neuropathy. DIAGNOSTIC STUDIES: CT scan of head showed extensive small-vessel ischemic disease of brain and left occipital and parietal rounded mass with edema on my review. MRI scan of brain with and without contrast showed a ring enhancing left parietal and occipital metastatic tumor with edema surrounding the tumor. PAST MEDICAL HISTORY Metastatic squamous cell cancer of larynx with metastasis to right arm and left nodes and with new found brain metastasis, right wrist surgery, right cataract surgery, total laryngectomy and pharyngectomy status post radiation and chemotherapy, left nephrectomy. CURRENT MEDICATIONS: - Keppra 750 mg by mouth twice a day, which was started in the emergency department and I will increase it to 1000 mg by mouth twice a day - dexamethasone 8 mg intravenous twice a day - gabapentin - magnesium ALLERGIES: CODEINE. SOCIAL HISTORY: The patient has history of 30 pack-year smoking history, which she quit in 2018. She used to drink three to four beers per week and quit drinking alcohol as well. FAMILY HISTORY: There is no family history of cancers or tumors. REVIEW OF SYSTEMS: All systems were reviewed and found to be noncontributory except as mentioned in history or present illness. PHYSICAL EXAMINATION: Temperature 98.1, blood pressure 94/50, 93% saturation on room air, pulse 92, respiratory 18. Heart: Regular rate and rhythm. Lungs: Clear to auscultation. Abdomen: Soft, nontender, nondistended. No pedal edema. No musculoskeletal abnormalities. No rash. No signs of meningeal irritation. No tremor, dysmetria or musculoskeletal abnormalities. The patient is awake, alert and oriented. She is unable to speak due to her laryngectomy and pharyngectomy. She is able to understand and follow commands and answered questions with signs. No facial weakness. Tongue and uvula are midline. 5/5 strength in all upper extremity. Deep tendon pulses are 1+ in arms and knees and absent at ankles. 5/5 strength in all upper extremities. She has decreased cold, pinprick, vibration sensation in her feet up to her knees. Gait is unsteady. She has decreased coordination of right side. Rapid finger movements were normal on both sides. LABORATORY DATA: Creatinine 1.5, which decreased to 1.3 this morning, GFR 44, hemoglobin 7.7. CMP showed AST 105 and capital ALT 145. ASSESSMENT: 1. Two focal onset, secondary generalized tonic-clonic seizures. 2. Right sided Lennox's paralysis - improving. 3. Left occipital and parietal metastatic cancer with vasogenic edema. 4. History of squamous cell carcinoma of the larynx with metastasis to lymph nodes, right arm and now brain. PLAN: 1. Dexamethasone 8 mg IV twice a day. She can continue 8 mg by mouth twice a day as an outpatient. 2. Keppra 1000 mg by mouth twice a day. We may consider additional medications if she has any recurrent seizures. 3. Referral to neurosurgery for surgical resection versus gamma knife. Her tumor in left occipital and parietal cortex is very superficial. The patient's medical oncologist , the patient told Dr. Pinky Hoover that she will be making a referral to neurosurgery . 4. Electroencephalogram (EEG). 5. Further investigation of her elevated liver enzymes per medical oncology and internal medicine. She needs further workup to rule out metastatic liver disease as well, which may affect her overall prognosis. 6. She should not be driving. Follow with our office in 2 - 3 weeks after hospital discharge. Physical and occupational therapy evaluation and treatment.
[2018-09-17] MEDS ORDERED: ISOVUE-370 76% 100ML VIAL (Q9967) As Ordered ONE (15:30)
[2018-09-17] MEDS: levETIRAcetam 250MG TABLET (KEPPRA) PO SCH (20:12)
[2018-09-17 22:00] VITALS: BP 124/65
[2018-09-18 06:00] VITALS: BP 139/65
[2018-09-18] MEDS: SODIUM CHLORIDE 0.9% INJ 10 ML SYR IV PRN (06:15)
[2018-09-18 06:25] LABS: BASO % 0.2 % (0.0-1.0); EOS % 0.2 % (0.0-3.0); HEMATOCRIT 27.5 % (36.0-47.0); LYMPH # 0.5 10^3/uL (1.5-4.5); MEAN CORPUSCULAR HEMOGLOBIN 31.3 pg (27.0-33.0); MEAN CORPUSCULAR HGB CONC 32.7 g/dl (32.0-36.5); MEAN CORPUSCULAR VOLUME 95.5 fl (80.0-96.0); MONO # 0.1 10^3/uL (0.0-0.8); MONO % 2.4 % (0.0-5.0); NEUTROPHILS # 5.2 10^3/uL (1.8-7.7); NEUTROPHILS % 87.5 % (36.0-66.0); PLATELET COUNT, AUTOMATED 195 10^3/uL (150-450); RED BLOOD COUNT 2.88 10^6/uL (4.00-5.40); WHITE BLOOD COUNT 5.9 10^3/uL (4.0-10.0)
[2018-09-18 06:44] LABS: CALCIUM LEVEL 8.5 MG/DL (8.5-10.1); CREATININE FOR GFR 1.31 MG/DL (0.55-1.30); GLOMERULAR FILTRATION RATE 44.4 (>51); POTASSIUM SERUM 4.4 MEQ/L (3.5-5.1)
--- NOTE | 2018-09-18 08:19 | REP ---
CT ABDOMEN AND PELVIS WITH ORAL AND IV CONTRAST: TECHNIQUE: Axial contrast enhanced images from the lung bases to the pubic symphysis using 100 mL Isovue 370 intravenous contrast material with multiplanar reformations. COMPARISON: 03/16/2018. Visualized lung bases demonstrate fibroatelectatic change. No liver mass is seen. Gallbladder is contracted. Spleen, right adrenal, pancreas and right kidney are essentially unremarkable. Patient has had a left nephrectomy and adrenalectomy. Metallic clips are seen in the left renal fossa without evidence of a mass. There is moderate atherosclerotic calcification of the abdominal aorta without aneurysm. I see no adenopathy. There is no free air or free fluid. There is no bowel wall thickening. There is no evidence of appendicitis. I see no pelvic mass. Urinary bladder is mildly distended and appears unremarkable. The visualized osseous structures demonstrate mild degenerative change without bone lesion. Once again there is a subcutaneous cystic structure in the left gluteal region superficially unchanged probably representing a sebaceous cyst measuring about 3.5 cm in diameter. IMPRESSION: No significant change when compared to prior study. No new mass or adenopathy. Electronically Signed by Asher Gates MD 09/18/2018 11:29 A
[2018-09-18] MEDS: FAMOTIDINE 20 MG TAB PO SCH ×2 (08:20→21:35)
[2018-09-18] MEDS: levETIRAcetam 250MG TABLET (KEPPRA) PO SCH ×2 (08:20→21:34)
[2018-09-18] MEDS: GABAPENTIN 300 MG CAP PO SCH ×3 (08:20→21:34)
[2018-09-18] MEDS: HEPARIN SOD (PORCINE) 5000 UNITS/ML VIAL SC SCH ×2 (08:21→21:35)
[2018-09-18] MEDS: MAGNESIUM OXIDE 400 MG TAB (MAG-OX) PO SCH (08:21)
[2018-09-18] MEDS: SODIUM CHLORIDE 0.9% INJ 10 ML SYR IV SCH (08:21)
--- NOTE | 2018-09-18 10:22 | IPNPDOC ---
Subjective Date Seen The patient was seen on 09/18/18. Subjective Chief Complaint/HPI Seizures Events since last encounter No more seizure episodes int hospital. Has trouble in walking. has disbalance from her neuropathy and overall her legs are getting weaker. No fever or chills, no abdominal pain , nausea or vomiting or diarrhea, no chest pain or cough. Patient received 1 unit of PRBC yesterday. Will start working with PT today. Objective Physical Examination General Exam: Positive: Alert, Cooperative, No Acute Distress Eye Exam: Positive: PERRLA, Conjunctiva & lids normal, EOMI; Negative: Sclera icteric ENT Exam: Positive: Tongue Midline, Nares Patent, Other ENT (has a tracheostomy stoma present) Neck Exam: Positive: Supple Chest Exam: Positive: Clear to auscultation, Normal air movement Heart Exam: Positive: Rate Normal, Regular Rhythm, Normal S1, Normal S2; Negative: Murmurs, Rubs Telemetry: Positive: No significant arrhythmia Abdomen Exam: Positive: Normal bowel sounds, Soft; Negative: Tenderness, Hepatospenomegaly Extremity Exam: Positive: Edema, Tenderness Skin Exam: Positive: Nl turgor and temperature; Negative: Breakdown, Lesion Neuro Exam: Positive: Strength at 5/5 X4 ext, Normal Tone Psych Exam: Positive: Memory Intact, Oriented x 3 Assessment /Plan Assessment 58 year old female with PMH of 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 the patient does not remember it. last thing she remembers is trying to gt into the cab and the next thing she remembers is the EMS are around her getting her into the ambulance. As per EMS she had another episode of generalized tonic clonic seizure in front of them and they gave her 5 mg of versed. After reaching the ED initially she was confused with right upper extremity weakness as per the ED physician. CT head was done which was negative for any acute events. After about half hour after arrival to the ED her confusion resolved and slowly her weakness of the right arm also resolved. By the time i saw her she was back to her baseline with no weakness. She was admitted to the hospitalist service for new onset seizure with Todds palsy which has resolved. Focal Seizure with secondary generalization x2 with Todds paresis of the right upper extremity first episode MRI with and without contrast shows solitary metastatic lesion on the left occipito parietal cortex superficial in position keppra and dexamethasone. Neurology consult appreciated. Spoke with Dr Bunch will see in the office next week and coordinate referral to [facility] for gamma knife resection or surgical resection. Chronic Anemia from chronic disease, chemotherapy B12 and Folate normal, Ferritin high but TSAT not elevated so she does not have iron overload. Ferritin elevated from Cancer PRBC transfusion. Lactacidosis due to seizure resolved. Transaminitis No liver mets seen in CT scan with contrast. 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 This followed by chemotherapy chemo now on hold due to angioedema like complications. 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 continue gabapentin. PT evaluation Renal insufficiency --CKD 3 Has solitary kidney, had left nephrctomy many years ago due to benign lesion. thought to be from complicating combination 5-FU/cisplatin/cetuximab. DVT prophylaxis ordered. Plan/VTE VTE Prophylaxis Ordered?: Yes VS, I&O, 24H, Fishbone Vital Signs/I&O Vital Signs Date Time Temp Pulse Resp B/P (MAP) Pulse Ox O2 Delivery O2 Flow Rate FiO2 09/18/18 06:00 97.0 60 18 139/65 (89) 95 09/16/18 20:11 Room Air I&O- Last 24 Hours up to 6 AM 09/18/18 06:00 Intake Total 2330 ml Output Total 0 ml Balance 2330 ml Laboratory Data 24H LABS Laboratory Tests 2 09/17/18 12:56: Iron Level 73, Total Iron Binding Capacity 213L, Transferrin % Saturation 34.3, Ferritin 1149H 09/18/18 06:08: Immature Granulocyte % (Auto) 0.7, White Blood Count 5.9, Red Blood Count 2.88L, Hemoglobin 9.0L, Hematocrit 27.5L, Mean Corpuscular Volume 95.5, Mean Corpuscular Hemoglobin 31.3, Mean Corpuscular Hemoglobin Concent 32.7, Red Cell Distribution Width 14.5, Platelet Count 195, Neutrophils (%) (Auto) 87.5H, Lymphocytes (%) (Auto) 9.0L, Monocytes (%) (Auto) 2.4, Eosinophils (%) (Auto) 0.2, Basophils (%) (Auto) 0.2, Neutrophils # (Auto) 5.2, Lymphocytes # (Auto) 0.5L, Monocytes # (Auto) 0.1, Eosinophils # (Auto) 0.0, Basophils # (Auto) 0.0, Nucleated Red Blood Cells % (auto) 0.0, Anion Gap 5L, Glomerular Filtration Rate 44.4L, Blood Urea Nitrogen 26#H, Creatinine 1.31H, Sodium Level 139, Potassium Level 4.4, Chloride Level 111H, Carbon Dioxide Level 23, Calcium Level 8.5 CBC/BMP Laboratory Tests 09/18/18 06:08 Red Blood Count 2.88 L, Mean Corpuscular Volume 95.5, Mean Corpuscular Hemoglobin 31.3, Mean Corpuscular Hemoglobin Concent 32.7, Red Cell Distribution Width 14.5, Neutrophils (%) (Auto) 87.5 H, Lymphocytes (%) (Auto) 9.0 L, Monocytes (%) (Auto) 2.4, Eosinophils (%) (Auto) 0.2, Basophils (%) (Auto) 0.2, Neutrophils # (Auto) 5.2, Lymphocytes # (Auto) 0.5 L, Monocytes # (Auto) 0.1, Eosinophils # (Auto) 0.0, Basophils # (Auto) 0.0, Calcium Level 8.5 Microbiology Microbiology 09/16/18 Blood Culture - Preliminary, Resulted No growth after 24 hours . All specim... 09/16/18 Blood Culture - Preliminary, Resulted No growth after 24 hours . All specim... LOGAN WAGNER MD September 18, 2018 10:22
[2018-09-18] MEDS: dexameTHASONE 4 MG/ML 1ML VIAL (J1100) IV SCH ×2 (11:52)
[2018-09-18 14:00] VITALS: BP 153/68
--- NOTE | 2018-09-18 20:50 | ECGEPIP ---
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
[2018-09-18 22:00] VITALS: BP 115/58
[2018-09-19] MEDS: dexameTHASONE 4 MG/ML 1ML VIAL (J1100) IV SCH ×2 (00:05→12:34)
[2018-09-19 06:00] VITALS: BP 144/66
[2018-09-19 06:53] LABS: HEMATOCRIT 27.5 % (36.0-47.0); HEMOGLOBIN 8.8 g/dl (12.0-15.5); LYMPH # 0.5 10^3/uL (1.5-4.5); LYMPH % 6.2 % (24.0-44.0); MEAN CORPUSCULAR HEMOGLOBIN 31.2 pg (27.0-33.0); MEAN CORPUSCULAR VOLUME 97.5 fl (80.0-96.0); MONO # 0.2 10^3/uL (0.0-0.8); MONO % 2.7 % (0.0-5.0); NEUTROPHILS % 89.8 % (36.0-66.0); PLATELET COUNT, AUTOMATED 218 10^3/uL (150-450); RED BLOOD COUNT 2.82 10^6/uL (4.00-5.40); WHITE BLOOD COUNT 7.8 10^3/uL (4.0-10.0)
[2018-09-19 07:10] LABS: CALCIUM LEVEL 8.5 MG/DL (8.5-10.1); CREATININE FOR GFR 1.31 MG/DL (0.55-1.30); GLOMERULAR FILTRATION RATE 44.4 (>51); POTASSIUM SERUM 4.3 MEQ/L (3.5-5.1)
[2018-09-19] MEDS: GABAPENTIN 300 MG CAP PO SCH ×3 (08:55→21:48)
[2018-09-19] MEDS: MAGNESIUM OXIDE 400 MG TAB (MAG-OX) PO SCH (08:55)
[2018-09-19] MEDS: FAMOTIDINE 20 MG TAB PO SCH ×2 (08:55→21:48)
[2018-09-19] MEDS: HEPARIN SOD (PORCINE) 5000 UNITS/ML VIAL SC SCH ×2 (08:56→21:48)
[2018-09-19] MEDS: SODIUM CHLORIDE 0.9% INJ 10 ML SYR IV SCH (08:56)
[2018-09-19] MEDS: levETIRAcetam 250MG TABLET (KEPPRA) PO SCH ×2 (08:56→21:48)
[2018-09-19 10:46] LABS: FOLATE 11.6 NG/ML (>5.4)
[2018-09-19 14:00] VITALS: BP 145/55
--- NOTE | 2018-09-19 14:20 | IPNPDOC ---
Subjective Date Seen The patient was seen on 09/19/18. Subjective Chief Complaint/HPI Seizure Events since last encounter Still having trouble with balance and ambulation. No further episodes of seizure here. no fever or chills, no chest pain or sob , no abdominal pain , nausea or ovomting or diarrhea. Objective Physical Examination General Exam: Positive: Alert, Cooperative, No Acute Distress Eye Exam: Positive: PERRLA, Conjunctiva & lids normal, EOMI; Negative: Sclera icteric ENT Exam: Positive: Tongue Midline, Nares Patent, Other ENT (has a tracheostomy stoma present) Neck Exam: Positive: Supple Chest Exam: Positive: Clear to auscultation, Normal air movement Heart Exam: Positive: Rate Normal, Regular Rhythm, Normal S1, Normal S2; Negative: Murmurs, Rubs Telemetry: Positive: No significant arrhythmia Abdomen Exam: Positive: Normal bowel sounds, Soft; Negative: Tenderness, Hepatospenomegaly Extremity Exam: Positive: Edema, Tenderness Skin Exam: Positive: Nl turgor and temperature; Negative: Breakdown, Lesion Neuro Exam: Positive: Strength at 5/5 X4 ext, Normal Tone Psych Exam: Positive: Memory Intact, Oriented x 3 Assessment /Plan Assessment 58 year old female with PMH of 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 the patient does not remember it. last thing she remembers is trying to gt into the cab and the next thing she remembers is the EMS are around her getting her into the ambulance. As per EMS she had another episode of generalized tonic clonic seizure in front of them and they gave her 5 mg of versed. After reaching the ED initially she was confused with right upper extremity weakness as per the ED physician. CT head was done which was negative for any acute events. After about half hour after arrival to the ED her confusion resolved and slowly her weakness of the right arm also resolved. By the time i saw her she was back to her baseline with no weakness. She was admitted to the hospitalist service for new onset seizure with Todds palsy which has resolved. Focal Seizure with secondary generalization x2 with Todds paresis of the right upper extremity first episode MRI with and without contrast shows solitary metastatic lesion on the left occipito parietal cortex superficial in position keppra and dexamethasone. Neurology consult appreciated. Spoke with Dr Bunch will see in the office next week and coordinate referral to [facility] for gamma knife resection or surgical resection. Chronic Anemia from chronic disease, chemotherapy B12 and Folate normal, Ferritin high but TSAT not elevated so she does not have iron overload. Ferritin elevated from Cancer PRBC transfusion. Lactacidosis due to seizure resolved. Transaminitis No liver mets seen in CT scan with contrast. 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 This followed by chemotherapy chemo now on hold due to angioedema like complications. 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 continue gabapentin. PT evaluation Renal insufficiency --CKD 3 Has solitary kidney, had left nephrctomy many years ago due to benign lesion. thought to be from complicating combination 5-FU/cisplatin/cetuximab. DVT prophylaxis ordered. Plan/VTE VTE Prophylaxis Ordered?: Yes VS, [facility]&O, [facility]O Vital Signs Date Time Temp Pulse Resp B/P (MAP) Pulse Ox O2 Delivery O2 Flow Rate FiO2 09/19/18 06:00 98.0 66 16 144/66 (92) 94 09/16/18 20:11 Room Air I&O- Last 24 Hours up to 6 AM 09/19/18 06:00 Intake Total 2620 ml Output Total 0 ml Balance 2620 ml Laboratory Data 24H LABS Laboratory Tests 2 09/19/18 06:00: Immature Granulocyte % (Auto) 1.3, White Blood Count 7.8, Red Blood Count 2.82L, Hemoglobin 8.8L, Hematocrit 27.5L, Mean Corpuscular Volume 97.5H, Mean Corpuscular Hemoglobin 31.2, Mean Corpuscular Hemoglobin Concent 32.0, Red Cell Distribution Width 14.9H, Platelet Count 218, Neutrophils (%) (Auto) 89.8H, Lymphocytes (%) (Auto) 6.2L, Monocytes (%) (Auto) 2.7, Eosinophils (%) (Auto) 0.0, Basophils (%) (Auto) 0.0, Neutrophils # (Auto) 7.0, Lymphocytes # (Auto) 0.5L, Monocytes # (Auto) 0.2, Eosinophils # (Auto) 0.0, Basophils # (Auto) 0.0, Nucleated Red Blood Cells % (auto) 0.0, Anion Gap 6L, Glomerular Filtration Rate 44.4L, Blood Urea Nitrogen 36H, Creatinine 1.31H, Sodium Level 139, Potassium Level 4.3, Chloride Level 109H, Carbon Dioxide Level 24, Calcium Level 8.5 CBC/BMP Laboratory Tests 09/19/18 06:00 Red Blood Count 2.82 L, Mean Corpuscular Volume 97.5 H, Mean Corpuscular Hemoglobin 31.2, Mean Corpuscular Hemoglobin Concent 32.0, Red Cell Distribution Width 14.9 H, Neutrophils (%) (Auto) 89.8 H, Lymphocytes (%) (Auto) 6.2 L, Monocytes (%) (Auto) 2.7, Eosinophils (%) (Auto) 0.0, Basophils (%) (Auto) 0.0, Neutrophils # (Auto) 7.0, Lymphocytes # (Auto) 0.5 L, Monocytes # (Auto) 0.2, Eosinophils # (Auto) 0.0, Basophils # (Auto) 0.0, Calcium Level 8.5 Microbiology Microbiology 09/16/18 Blood Culture - Preliminary, Resulted No Growth after 72 hours. All specime... 09/16/18 Blood Culture - Preliminary, Resulted No Growth after 72 hours. All specime... LOGAN WAGNER MD September 19, 2018 14:20
[2018-09-19 22:00] VITALS: BP 130/61
[2018-09-20] MEDS: SODIUM CHLORIDE 0.9% INJ 10 ML SYR IV SCH ×2 (00:21→09:56)
[2018-09-20 06:00] VITALS: BP 141/67
[2018-09-20 06:37] LABS: HEMATOCRIT 28.2 % (36.0-47.0); HEMOGLOBIN 9.1 g/dl (12.0-15.5); LYMPH # 0.4 10^3/uL (1.5-4.5); LYMPH % 5.5 % (24.0-44.0); MEAN CORPUSCULAR HGB CONC 32.3 g/dl (32.0-36.5); MEAN CORPUSCULAR VOLUME 99.3 fl (80.0-96.0); MONO # 0.2 10^3/uL (0.0-0.8); MONO % 2.9 % (0.0-5.0); NEUTROPHILS # 6.6 10^3/uL (1.8-7.7); NEUTROPHILS % 90.4 % (36.0-66.0); PLATELET COUNT, AUTOMATED 245 10^3/uL (150-450); RED BLOOD COUNT 2.84 10^6/uL (4.00-5.40); WHITE BLOOD COUNT 7.3 10^3/uL (4.0-10.0)
[2018-09-20 06:54] LABS: CALCIUM LEVEL 8.1 MG/DL (8.5-10.1); CREATININE FOR GFR 1.27 MG/DL (0.55-1.30); POTASSIUM SERUM 4.3 MEQ/L (3.5-5.1)
[2018-09-20] MEDS: GABAPENTIN 300 MG CAP PO SCH ×3 (09:55→20:39)
[2018-09-20] MEDS: HEPARIN SOD (PORCINE) 5000 UNITS/ML VIAL SC SCH ×2 (09:55→20:39)
[2018-09-20] MEDS: MAGNESIUM OXIDE 400 MG TAB (MAG-OX) PO SCH (09:55)
[2018-09-20] MEDS: levETIRAcetam 250MG TABLET (KEPPRA) PO SCH ×2 (09:55→20:39)
[2018-09-20] MEDS: FAMOTIDINE 20 MG TAB PO SCH ×2 (09:55→20:39)
--- NOTE | 2018-09-20 11:01 | IPNPDOC ---
Subjective Date Seen The patient was seen on 09/20/18. Subjective Chief Complaint/HPI Seizure Events since last encounter No complaints this morning. however she did not do well with PT yesterday. Patient says her walking is bad, has trouble with balance . her legs are weak. Daughter thinks she is becoming forgetful sometimes a little confused. No fever or chills, no chest pain or sob, no abdominal pain , no nausea or vomiting or diarrhea Objective Physical Examination General Exam: Positive: Alert, Cooperative, No Acute Distress Eye Exam: Positive: PERRLA, Conjunctiva & lids normal, EOMI; Negative: Sclera icteric ENT Exam: Positive: Tongue Midline, Nares Patent, Other ENT (has a tracheostomy stoma present) Neck Exam: Positive: Supple Chest Exam: Positive: Clear to auscultation, Normal air movement Heart Exam: Positive: Rate Normal, Regular Rhythm, Normal S1, Normal S2; Negative: Murmurs, Rubs Telemetry: Positive: No significant arrhythmia Abdomen Exam: Positive: Normal bowel sounds, Soft; Negative: Tenderness, Hepatospenomegaly Extremity Exam: Positive: Edema, Tenderness Skin Exam: Positive: Nl turgor and temperature; Negative: Breakdown, Lesion Neuro Exam: Positive: Strength at 5/5 X4 ext, Normal Tone Psych Exam: Positive: Memory Intact, Oriented x 3 Assessment /Plan Assessment 58 year old female with PMH of metastatic squamous cell cancer of the suprag lottic larynx with stoma s/p surgery and palliative RT for bulky cervical lymph nodes and right arm mass was on her way to a doctor's appointment and was trying to get into the cab when she had an episode of Seizure. the patient does not remember it. last thing she remembers is trying to gt into the cab and the next thing she remembers is the EMS are around her getting her into the ambulance. As per EMS she had another episode of generalized tonic clonic seizure in front of them and they gave her 5 mg of versed. After reaching the ED initially she was confused with right upper extremity weakness as per the ED physician. CT head was done which was negative for any acute events. After about half hour after arrival to the ED her confusion resolved and slowly her weakness of the right arm also resolved. By the time i saw her she was back to her baseline with no weakness. She was admitted to the hospitalist service for new onset seizure with Todds palsy which has resolved. Focal Seizure with secondary generalization x2 with Todds paresis of the right upper extremity first episode MRI with and without contrast shows solitary metastatic lesion on the left occipito parietal cortex superficial in position keppra and dexamethasone. Neurology consult appreciated. Spoke with Dr Bunch will see in the office next week and coordinate referral to [facility] [place] [facility] for gamma knife resection or surgical resection. Chronic Anemia from chronic disease, chemotherapy B12 and Folate normal, Ferritin high but TSAT not elevated so she does not have iron overload. Ferritin elevated from Cancer PRBC transfusion. Lactacidosis due to seizure resolved. Transaminitis No liver mets seen in CT scan with contrast. 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 This followed by chemotherapy chemo now on hold due to angioedema like complications. 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 continue gabapentin. PT evaluation Renal insufficiency --CKD 3 Has solitary kidney, had left nephrctomy many years ago due to benign lesion. thought to be from complicating combination 5-FU/cisplatin/cetuximab. DVT prophylaxis ordered. Plan/VTE VTE Prophylaxis Ordered?: Yes VS, I&O, 24H, Fishbone Vital Signs/I&O Vital Signs Date Time Temp Pulse Resp B/P (MAP) Pulse Ox O2 Delivery O2 Flow Rate FiO2 09/20/18 06:00 97.6 63 18 141/67 (91) 95 09/16/18 20:11 Room Air I&O- Last 24 Hours up to 6 AM 09/20/18 06:00 Intake Total 2750 ml Output Total 0 ml Balance 2750 ml Laboratory Data 24H LABS Laboratory Tests 2 09/20/18 05:03: Immature Granulocyte % (Auto) 1.2, White Blood Count 7.3, Red Blood Count 2.84L, Hemoglobin 9.1L, Hematocrit 28.2L, Mean Corpuscular Volume 99.3H, Mean Corpuscular Hemoglobin 32.0, Mean Corpuscular Hemoglobin Concent 32.3, Red Cell Distribution Width 14.7H, Platelet Count 245, Neutrophils (%) (Auto) 90.4H, Lymphocytes (%) (Auto) 5.5L, Monocytes (%) (Auto) 2.9, Eosinophils (%) (Auto) 0.0, Basophils (%) (Auto) 0.0, Neutrophils # (Auto) 6.6, Lymphocytes # (Auto) 0.4L, Monocytes # (Auto) 0.2, Eosinophils # (Auto) 0.0, Basophils # (Auto) 0.0, Nucleated Red Blood Cells % (auto) 0.0, Anion Gap 5L, Glomerular Filtration Rate 46.0L, Blood Urea Nitrogen 37H, Creatinine 1.27, Sodium Level 140, Potassium Level 4.3, Chloride Level 108H, Carbon Dioxide Level 27, Calcium Level 8.1L CBC/BMP Laboratory Tests 09/20/18 05:03 Red Blood Count 2.84 L, Mean Corpuscular Volume 99.3 H, Mean Corpuscular Hemoglobin 32.0, Mean Corpuscular Hemoglobin Concent 32.3, Red Cell Distribution Width 14.7 H, Neutrophils (%) (Auto) 90.4 H, Lymphocytes (%) (Auto) 5.5 L, Monocytes (%) (Auto) 2.9, Eosinophils (%) (Auto) 0.0, Basophils (%) (Auto) 0.0, Neutrophils # (Auto) 6.6, Lymphocytes # (Auto) 0.4 L, Monocytes # (Auto) 0.2, E osinophils # (Auto) 0.0, Basophils # (Auto) 0.0, Calcium Level 8.1 L Microbiology Microbiology 09/16/18 Blood Culture - Preliminary, Resulted No Growth after 72 hours. All specime... 09/16/18 Blood Culture - Preliminary, Resulted No Growth after 72 hours. All specime... LOGAN WAGNER MD September 20, 2018 11:01
[2018-09-20] MEDS: dexameTHASONE 4 MG/ML 1ML VIAL (J1100) IV SCH ×2 (12:20)
[2018-09-20] MEDS: SODIUM CHLORIDE 0.9% INJ 10 ML SYR IV PRN (12:21)
[2018-09-20 14:00] VITALS: BP 154/78
[2018-09-20 22:00] VITALS: BP 135/63
[2018-09-21] MEDS: dexameTHASONE 4 MG/ML 1ML VIAL (J1100) IV SCH ×2 (00:39→12:00)
[2018-09-21] MEDS: SODIUM CHLORIDE 0.9% INJ 10 ML SYR IV PRN (05:49)
[2018-09-21 06:00] VITALS: BP 140/66
[2018-09-21 06:16] LABS: HEMATOCRIT 29.5 % (36.0-47.0); HEMOGLOBIN 9.6 g/dl (12.0-15.5); LYMPH # 0.5 10^3/uL (1.5-4.5); LYMPH % 6.7 % (24.0-44.0); MEAN CORPUSCULAR HEMOGLOBIN 31.7 pg (27.0-33.0); MEAN CORPUSCULAR HGB CONC 32.5 g/dl (32.0-36.5); MEAN CORPUSCULAR VOLUME 97.4 fl (80.0-96.0); MONO # 0.4 10^3/uL (0.0-0.8); MONO % 5.8 % (0.0-5.0); NEUTROPHILS # 6.1 10^3/uL (1.8-7.7); NEUTROPHILS % 86.6 % (36.0-66.0); PLATELET COUNT, AUTOMATED 269 10^3/uL (150-450); RED BLOOD COUNT 3.03 10^6/uL (4.00-5.40); WHITE BLOOD COUNT 7.1 10^3/uL (4.0-10.0)
[2018-09-21 06:42] LABS: CALCIUM LEVEL 8.7 MG/DL (8.5-10.1); CREATININE FOR GFR 1.18 MG/DL (0.55-1.30); GLOMERULAR FILTRATION RATE 50.1 (>51); POTASSIUM SERUM 4.4 MEQ/L (3.5-5.1)
[2018-09-21] MEDS: HEPARIN SOD (PORCINE) 5000 UNITS/ML VIAL SC SCH (09:58)
[2018-09-21] MEDS: GABAPENTIN 300 MG CAP PO SCH (09:58)
[2018-09-21] MEDS: FAMOTIDINE 20 MG TAB PO SCH (09:58)
[2018-09-21] MEDS: levETIRAcetam 250MG TABLET (KEPPRA) PO SCH (09:58)
[2018-09-21] MEDS: MAGNESIUM OXIDE 400 MG TAB (MAG-OX) PO SCH (09:58)
[2018-09-21] MEDS ORDERED: FAMO20TA PO (11:12)
[2018-09-21] MEDS ORDERED: KEPP250T5 PO (11:12)
[2018-09-21] MEDS ORDERED: DEXA4TA PO (11:12)
--- NOTE | 2018-09-21 12:48 | DS.PDOC ---
Discharge Summary General Date of Admission September 18, 2018 at 17:33 Date of Discharge 09/21/18 Discharge Summary PROCEDURES PERFORMED DURING STAY: [None]. 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 H/O Left nephrectomy COMPLICATIONS/CHIEF COMPLAINT: Malignant Neoplasm Of Supraglottis, Seizure. HISTORY OF PRESENT ILLNESS: See history and physical HOSPITAL COURSE: 58 year old female with PMH of 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 the patient does not remember it. last thing she remembers is trying to gt into the cab and the next thing she remembers is the EMS are around her getting her into the ambulance. As per EMS she had another episode of generalized tonic clonic seizure in front of them and they gave her 5 mg of versed. After reaching the ED initially she was confused with right upper extremity weakness as per the ED physician. CT head was done which was negative for any acute events. After about half hour after arrival to the ED her confusion resolved and slowly her weakness of the right arm also resolved. By the time i saw her she was back to her baseline with no weakness. She was admitted to the hospitalist service for new onset seizure with Todds palsy which has resolved. Focal Seizure with secondary generalization x2 with Todds paresis of the right upper extremity first episode MRI with and without contrast shows solitary metastatic lesion on the left occipito parietal cortex superficial in position keppra and dexamethasone. Neurology consult appreciated. Spoke with Dr Bunch will see in the office next week and coordinate referral to [facility] neurosurgery for gamma knife resection or surgical resection. Chronic Anemia from chronic disease, chemotherapy B12 and Folate normal, Ferritin high but TSAT not elevated so she does not have iron overload. Ferritin elevated from Cancer PRBC transfusion. Lactacidosis due to seizure resolved. Transaminitis No liver mets seen in CT scan with contrast. 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 This followed by chemotherapy chemo now on hold due to angioedema like complications. 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 continue gabapentin. PT evaluation Renal insufficiency --CKD 3 Has solitary kidney, had left nephrctomy many years ago due to benign lesion. thought to be from complicating combination 5-FU/cisplatin/cetuximab. DISCHARGE MEDICATIONS: Please see below. ALLERGIES: Please see below. PHYSICAL EXAMINATION ON DISCHARGE: VITAL SIGNS: Please see below. General Exam: Positive: Alert, Cooperative, No Acute Distress Eye Exam: Positive: PERRLA, Conjunctiva & lids normal, EOMI; Negative: Sclera icteric ENT Exam: Positive: Tongue Midline, Nares Patent, Other ENT (has a tracheostomy stoma present) Neck Exam: Positive: Supple Chest Exam: Positive: Clear to auscultation, Normal air movement Heart Exam: Positive: Rate Normal, Regular Rhythm, Normal S1, Normal S2; Negative: Murmurs, Rubs Telemetry: Positive: No significant arrhythmia Abdomen Exam: Positive: Normal bowel sounds, Soft; Negative: Tenderness, Hepatospenomegaly Extremity Exam: Positive: Edema, Tenderness Skin Exam: Positive: Nl turgor and temperature; Negative: Breakdown, Lesion Neuro Exam: Positive: Strength at 5/5 X4 ext, Normal Tone Psych Exam: Positive: Memory Intact, Oriented x 3 LABORATORY DATA: Please see below. ACTIVITY: [As tolerated]. DIET: As tolerated DISCHARGE PLAN: Home with services DISPOSITION: Home DISCHARGE INSTRUCTIONS: Follow up with PMD in 1 week Follow up with Dr Bunch on 09/21/[address] Bales in 2 to 3 weeks DISCHARGE CONDITION: [Stable]. TIME SPENT ON DISCHARGE: Greater than 30 minutes. Vital Signs/I&Os Vital Signs Date Time Temp Pulse Resp B/P (MAP) Pulse Ox O2 Delivery O2 Flow Rate FiO2 09/21/18 10:01 5.0 28 09/21/18 06:00 97.4 56 16 140/66 (90) 96 09/16/18 20:11 Room Air I&O- Last 24 Hours up to 6 AM 09/21/18 06:00 Intake Total 3020 ml Output Total 0 ml Balance 3020 ml Laboratory Data Labs 24H Laboratory Tests 2 09/21/18 05:45: Immature Granulocyte % (Auto) 0.9, White Blood Count 7.1, Red Blood Count 3.03L, Hemoglobin 9.6L, Hematocrit 29.5L, Mean Corpuscular Volume 97.4H, Mean Corpuscular Hemoglobin 31.7, Mean Corpuscular Hemoglobin Concent 32.5, Red Cell Distribution Width 14.5, Platelet Count 269, Neutrophils (%) (Auto) 86.6H, Lymphocytes (%) (Auto) 6.7L, Monocytes (%) (Auto) 5.8H, Eosinophils (%) (Auto) 0.0, Basophils (%) (Auto) 0.0, Neutrophils # (Auto) 6.1, Lymphocytes # (Auto) 0.5L, Monocytes # (Auto) 0.4, Eosinophils # (Auto) 0.0, Basophils # (Auto) 0.0, Nucleated Red Blood Cells % (auto) 0.0, Anion Gap 6L, Glomerular Filtration Rate 50.1L, Blood Urea Nitrogen 33H, Creatinine 1.18, Sodium Level 140, Potassium Level 4.4, Chloride Level 108H, Carbon Dioxide Level 26, Calcium Level 8.7 CBC/BMP Laboratory Tests 09/21/18 05:45 Red Blood Count 3.03 L, Mean Corpuscular Volume 97.4 H, Mean Corpuscular Hemoglobin 31.7, Mean Corpuscular Hemoglobin Concent 32.5, Red Cell Distribution Width 14.5, Neutrophils (%) (Auto) 86.6 H, Lymphocytes (%) (Auto) 6.7 L, Monocytes (%) (Auto) 5.8 H, Eosinophils (%) (Auto) 0.0, Basophils (%) (Auto) 0.0, Neutrophils # (Auto) 6.1, Lymphocytes # (Auto) 0.5 L, Monocytes # (Auto) 0.4, Eosinophils # (Auto) 0.0, Basophils # (Auto) 0.0, Calcium Level 8.7 Microbiology Microbiology 09/16/18 Blood Culture - Final, Complete NO GROWTH AFTER 5 DAYS 09/16/18 Blood Culture - Final, Complete NO GROWTH AFTER 5 DAYS Discharge Medications Scheduled Dexamethasone (Dexamethasone) 4 Mg Tablet, 8 MG PO BID Famotidine (Famotidine) 20 Mg Tablet, 20 MG PO BID Gabapentin (Gabapentin) 100 Mg Capsule, 300 MG PO TID, (Reported) Levetiracetam (Keppra) 250 Mg Tablet, 1,000 MG PO BID Magnesium Chloride (Slow-Mag) 71.5 Mg Tablet.dr, 71.5 MG PO BID, (Reported) Allergies Coded Allergies: codeine (Verified Adverse Reaction, Intermediate, KIDNEY DYSFUNCTION, 08/10/18) LOGAN WAGNER MD September 21, 2018 12:48
[2018-09-21] MEDS ORDERED: MAGN400T2 PO (14:58)
== END 2018-09-21 13:22 | disposition home health service (06) | DRG 41 ==
LOC: M ED 12:03 → EDSEX 12:03 → EDBD 12:03 → M ED INP 17:18 → M MSPAV 20:16 → OBSVTOIN 09-18 17:33
PROVIDERS: ADMIT Internal Medicine Nephrology; ATTEND Internal Medicine Nephrology
PROC: 30233N1 Transfusion of Nonautologous Red Blood Cells into Peripheral Vein, Percutaneous Approach (ICD-10-PCS; principal; 2018-09-18)
DX: C79.31 Secondary malignant neoplasm of brain (principal); G93.6 Cerebral edema; C77.9 Secondary and unspecified malignant neoplasm of lymph node, unspecified; C79.89 Secondary malignant neoplasm of other specified sites; E87.2 Acidosis; D64.81 Anemia due to antineoplastic chemotherapy; C32.2 Malignant neoplasm of subglottis; G62.0 Drug-induced polyneuropathy; G40.409 Other generalized epilepsy and epileptic syndromes, not intractable, without status epilepticus; N18.3 Chronic kidney disease, stage 3 (moderate); G83.84 Todd's paralysis (postepileptic); Z79.899 Other long term (current) drug therapy; Z88.5 Allergy status to narcotic agent; Z87.891 Personal history of nicotine dependence

== ENCOUNTER → 2018-09-23 | Outpatient (CLI) | payer OTHER ==
[~2018-09-23] MED LIST changes: +FAMO20TA PO; +GABA-1171 PO; +ISOVUE-370 76% 100ML VIAL (Q9967) As Ordered ONE; +KEPP250T5 PO; +MAGN400T2 PO
--- NOTE | 2018-09-24 09:29 | REP ---
CT CHEST WITH IV CONTRAST: HISTORY: Restaging metastatic squamous carcinoma. Comparison chest CT study February 03, [address] CONTRAST DOSE: 100 mL of intravenous Isovue [address] FINDINGS: There is no new pulmonary nodule. Bilateral lower lobe linear fibrosis is seen and mild biapical pleuroparenchymal fibrosis is noted unchanged from both prior studies. There is no evidence of pleural or pericardial effusion. Previously noted foci of metastasis in the soft tissues along the left trapezius, in the right axillary lymph node focus, and in the epicardial fat lymph node focus have all resolved. There are normal-sized subcarinal and precarinal lymph nodes. The largest of these measures 7 mm in short axis dimension. This is unchanged from most recent prior study and a little changed from October 2017. No new adenopathy is seen. The focus along the lateral margin of the liver is probably out of the scan range for the current study. No hepatic lesion is seen. No adrenal lesion is observed. No bony destructive lesion is seen. A left-sided Wlmmye-E-Ixth catheter is noted. Some vascular calcification is seen. IMPRESSION: Previously noted metastatic foci have regressed. Stable findings since the most recent prior study of February 03, 2018. Electronically Signed by Josh Francisco MD 09/24/2018 09:52 A
--- NOTE | 2018-09-24 10:03 | REP ---
Soft-tissue neck CT study with IV contrast: History: Restaging metastatic squamous cell carcinoma. Comparison neck CT study is from February 03, 2018 and October 27, 2017. The patient is status post laryngectomy and partial pharyngectomy. CT contrast dose: 100 ml of intravenous Isovue 370. CT findings: The most recent sinus CT study demonstrated a 14 mm right anterior jugular lymph node. This has resolved. There is no evidence of right-sided adenopathy. There is a tiny cyst in the right lobe of the thyroid unchanged. Today's CT demonstrates a 4 mm nodule in the left lobe of the thyroid which was not apparent previously. No left neck adenopathy is seen. The patient is status post laryngectomy and, partial pharyngectomy on the left. Tracheal stoma is unremarkable. Vascular calcification is noted. No superior mediastinal adenopathy is seen. No supraclavicular adenopathy is seen. Submandibular salivary glands are normal and symmetric. Tonsillar and peritonsillar soft tissues are unremarkable. Pharyngeal soft tissues are unchanged. Impression: There is no evidence of neck mass or adenopathy. Postsurgical changes are noted as above. Tiny thyroid nodules are seen. Electronically Signed by Josh Francisco MD 09/24/2018 09:55 A
== END ==
LOC: M RAD 17:59
PROVIDERS: ATTEND Internal Medicine Medical Oncology
DX: Z90.02 Acquired absence of larynx (principal); Z90.89 Acquired absence of other organs; R91.8 Other nonspecific abnormal finding of lung field; C76.0 Malignant neoplasm of head, face and neck
CPT/HCPCS: 70491; 71260; Q9967

== ENCOUNTER → 2018-09-26 | Outpatient (CLI) | payer OTHER ==
[~2018-09-26] MED LIST changes: -ISOVUE-370 76% 100ML VIAL (Q9967) As Ordered ONE
--- NOTE | 2018-09-26 13:10 | REP ---
Duplex extremity venous ultrasound: Bilateral lower extremities. History: Bilateral leg swelling. Ankle pain while walking. Findings: The deep veins are anechoic and fully compressible from the groin to the popliteal fossa in the left and right lower extremity. Color flow imaging is homogeneous. Spectral Doppler interrogation demonstrates intact respiratory variation in flow and normal manual augmentation of flow. There is no evidence of deep vein thrombosis. Incidental note is made of bilateral proximal superficial femoral artery occlusion with distal reconstitution via collaterals. Impression: Negative bilateral lower extremity duplex venous ultrasound. No evidence of deep vein thrombosis. Incidental note is made of bilateral proximal superficial femoral artery occlusions with distal reconstitution via collaterals. Electronically Signed by Josh Francisco MD 09/26/2018 07:29 P
== END ==
LOC: M RAD 12:06
PROVIDERS: ATTEND Internal Medicine Medical Oncology
DX: I74.3 Embolism and thrombosis of arteries of the lower extremities (principal)